=== PATIENT | male | born 1935 | race Caucasian/White ===

== ENCOUNTER 2021-02-09 13:16 | Outpatient (CLI) | payer MEDICARE, OTHER | END 2021-02-09 13:17 | disposition home or self-care (01) | LOC: CSHWCC 13:16 | PROVIDERS: ATTEND Nurse Practitioner Family | DX: I87.2 Venous insufficiency (chronic) (peripheral) (principal); S81.802D Unspecified open wound, left lower leg, subsequent encounter; R60.0 Localized edema; I21.9 Acute myocardial infarction, unspecified; I11.0 Hypertensive heart disease with heart failure; I50.9 Heart failure, unspecified; I48.20 Chronic atrial fibrillation, unspecified; V00-Y99 External causes of morbidity; Z85.51 Personal history of malignant neoplasm of bladder | CPT/HCPCS: 11042; 97605; 99213; G0463 ==

== ENCOUNTER 2021-03-09 09:32 | Outpatient (CLI) | payer OTHER | END 2021-03-09 09:33 | disposition home or self-care (01) | LOC: CSHWCC 09:32 | PROVIDERS: ATTEND Nurse Practitioner Family | DX: S81.802A Unspecified open wound, left lower leg, initial encounter (principal); I10 Essential (primary) hypertension; I11.0 Hypertensive heart disease with heart failure; I21.9 Acute myocardial infarction, unspecified; I48.20 Chronic atrial fibrillation, unspecified; I87.2 Venous insufficiency (chronic) (peripheral); R60.0 Localized edema; V00-Y99 External causes of morbidity; Z85.51 Personal history of malignant neoplasm of bladder | CPT/HCPCS: 87070; 87077; 87186; 87205; 99213; G0463 ==

== ENCOUNTER 2021-03-22 11:33 | Outpatient (CLI) | payer MEDICARE | END 2021-03-22 11:34 | disposition home or self-care (01) | LOC: CSHWCC 11:33 | PROVIDERS: ATTEND Nurse Practitioner Family | DX: S81.802D Unspecified open wound, left lower leg, subsequent encounter (principal); I21.9 Acute myocardial infarction, unspecified; I48.20 Chronic atrial fibrillation, unspecified; I87.2 Venous insufficiency (chronic) (peripheral); R60.0 Localized edema; I11.0 Hypertensive heart disease with heart failure; I50.9 Heart failure, unspecified; V00-Y99 External causes of morbidity; Z85.51 Personal history of malignant neoplasm of bladder | CPT/HCPCS: 11042; 97139; G0463; 99213 ==

== ENCOUNTER 2021-04-06 16:39 | Outpatient (CLI) | payer OTHER | END 2021-04-06 16:40 | disposition home or self-care (01) | LOC: CSHWCC 16:39 | PROVIDERS: ATTEND Nurse Practitioner Family | DX: S81.802A Unspecified open wound, left lower leg, initial encounter (principal); I11.0 Hypertensive heart disease with heart failure; I50.9 Heart failure, unspecified; I25.2 Old myocardial infarction; I48.20 Chronic atrial fibrillation, unspecified; I87.2 Venous insufficiency (chronic) (peripheral); R60.0 Localized edema; V00-Y99 External causes of morbidity; Z85.51 Personal history of malignant neoplasm of bladder | CPT/HCPCS: 99213; G0463 ==

== ENCOUNTER 2021-07-08 08:56 | Outpatient (CLI) | payer OTHER | END 2021-07-08 08:57 | disposition home or self-care (01) | LOC: CSHWCC 08:56 | PROVIDERS: ATTEND Nurse Practitioner Family | DX: I87.311 Chronic venous hypertension (idiopathic) with ulcer of right lower extremity (principal); I87.312 Chronic venous hypertension (idiopathic) with ulcer of left lower extremity; G60.3 Idiopathic progressive neuropathy; I11.0 Hypertensive heart disease with heart failure; I21.9 Acute myocardial infarction, unspecified; I48.20 Chronic atrial fibrillation, unspecified; I50.23 Acute on chronic systolic (congestive) heart failure; I87.2 Venous insufficiency (chronic) (peripheral); L97.211 Non-pressure chronic ulcer of right calf limited to breakdown of skin; L97.221 Non-pressure chronic ulcer of left calf limited to breakdown of skin; L97.222 Non-pressure chronic ulcer of left calf with fat layer exposed; J90 Pleural effusion, not elsewhere classified; L97.429 Non-pressure chronic ulcer of left heel and midfoot with unspecified severity; N17.9 Acute kidney failure, unspecified; R60.0 Localized edema; V00-Y99 External causes of morbidity; Z85.51 Personal history of malignant neoplasm of bladder | CPT/HCPCS: 11042; 99213; G0463 ==